=== PATIENT | female | born 1990 | race American Indian/Alaskan Native ===

== ENCOUNTER 2016-06-14 08:46 | Emergency (ER) | payer BC ==
[2016-06-14] MEDS ORDERED: MAGNESIUM SULFATE 2GM/50ML 2 GM/50 ML BAG IV ONE (08:53)
[2016-06-14] MEDS ORDERED: XOPENEX IH ONE ×3 (08:56→09:52)
[2016-06-14] MEDS ORDERED: BRETHINE SUB-Q ONE (09:03)
--- NOTE | 2016-06-14 09:03 | Emergency Department Report ---
HPI - General Chief Complaint: Adult Asthma Time Seen by Provider: 06/14/16 08:52 - HPI HPI: Room 17 The patient is a 25-year-old female presenting with a chief complaint of shortness of breath. Patient states her symptoms began last night after moving furniture and cleaning her home. Patient states it feels like her asthma. Patient does admit to occasional cough that is productive of yellow sputum. Patient denies any history of fever. EMS was called secondary to the patient's shortness of breath but did not improve with home administered albuterol. Patient was administered Solu-Medrol 125 mg IV by EMS. Patient continues to complain of shortness of breath Location: Lungs Duration: [see above] Quality: Wheezing consistent with asthma Severity: Moderate Modifying factors: [see above] Context: [see above] Mode of transportation: EMS ED Past Medical Hx - Past Medical History Previous Medical History?: Yes Hx Asthma: Yes Additional medical history: Hypercholesterolemia - Surgical History Past Surgical History?: No - Family History Family history: no significant - Social History Smoking Status: Never Smoker Substance Use Type: Alcohol - Medications Home Medications: Home Medications Medication Instructions Recorded Confirmed Last Taken Type ALBUTEROL Inhaler [Proair] 2 puff IH QID PRN #1 inhalation 06/14/16 Unknown Rx Nebulizer [Compact Compressor 1 each MC QID PRN #1 each 06/14/16 Unknown Rx Nebulizer] Prednisone [predniSONE 10 mg 10 mg PO .TAPER #1 tab.ds.pk 06/14/16 Unknown Rx (6-Day Pack, 21 Tabs)] ED Review of Systems ROS: Stated complaint: LANA Other details as noted in HPI Comment: All other systems reviewed and negative Constitutional: denies: chills, fever Eyes: denies: eye pain, eye discharge, vision change ENT: denies: ear pain, throat pain Respiratory: cough, shortness of breath, wheezing Cardiovascular: denies: chest pain, palpitations Endocrine: no symptoms reported Gastrointestinal: denies: abdominal pain, nausea, diarrhea Genitourinary: denies: urgency, dysuria, discharge Musculoskeletal: denies: back pain, joint swelling, arthralgia Skin: denies: rash, lesions Neurological: denies: headache, weakness, paresthesias Psychiatric: denies: anxiety, depression Hematological/Lymphatic: denies: easy bleeding, easy bruising Physical Exam - Physical Exam Physical Exam: GENERAL: The patient is well-developed well-nourished female lying on stretcher with audible wheezing was still able to speak. [] HEENT: Normocephalic. Atraumatic. Extraocular motions are intact. Patient has moist mucous membranes. NECK: Supple. Trachea midline CHEST/LUNGS: Diffuse wheezing. There is moderate respiratory distress noted. HEART/CARDIOVASCULAR: Regular. There is tachycardia. There is no gallop rub or murmur. ABDOMEN: Abdomen is soft, nontender. Patient has normal bowel sounds. There is no abdominal distention. SKIN: There is no rash. There is no edema. There is no diaphoresis. NEURO: The patient is awake, alert, and oriented. The patient is cooperative. The patient has normal speech MUSCULOSKELETAL: There is no evidence of acute injury. ED Course - Reevaluation(s) Reevaluation #1: 06/14/16 09:52 Patient appears more relaxed. Patient still has mild wheezing present throughout but is not in respiratory distress. Will continue Xopenex and reassess Reevaluation #2: 06/14/16 11:50 Patient states she feels much improved. No wheezing auscultated ED Medical Decision Making - Radiology Data Radiology results: image reviewed (chest x-ray) interpreted by me: Chest x-ray-no focal infiltrates, no pneumothorax - Differential Diagnosis acute asthma exacerbation, pneumonia, bronchitis Critical care attestation.: If time is entered above; I have spent that time in minutes in the direct care of this critically ill patient, excluding procedure time. ED Disposition Clinical Impression: Acute asthma exacerbation, Shortness of breath Disposition: DISCHARGED TO HOME OR SELFCARE Is pt being admited?: No Does the pt Need Aspirin: No Condition: Stable Instructions: Asthma (ED) Additional Instructions: Return to the emergency department immediately should you develop worsening symptoms, fever, inability to tolerate food or liquid or any other concerns. Prescriptions: ALBUTEROL Inhaler [Proair] 2 puff IH QID PRN #1 inhalation PRN Reason: Shortness Of Breath Nebulizer [Compact Compressor Nebulizer] 1 each MC QID PRN #1 each PRN Reason: Wheezing Prednisone [predniSONE 10 mg (6-Day Pack, 21 Tabs)] 10 mg PO .TAPER #1 tab.ds.pk Referrals: RICHIE HUGHES MD [Staff Physician] - 3-5 Days (Dr. Hughes is a primary physician. Please follow up with him to be established as a patient) STACIE LYN MD [Staff Physician] - 3-5 Days (Dr. Lyn is a electrical cad designer. Please follow up with him for further evaluation) Time of Disposition: 11:53
--- NOTE | 2016-06-14 09:40 | XRay Report ---
Single view chest: History: Shortness of breath. Findings: Normal cardiomediastinal silhouette. Trachea is midline. No consolidation, pneumothorax or pleural effusion. Impression: No acute cardiopulmonary findings.
[2016-06-14 11:41] VITALS: BP 124/73
== END 2016-06-14 12:12 | disposition home or self-care (01) ==
LOC: ED 08:46
DX: J45.901 Unspecified asthma with (acute) exacerbation (principal); E78.00 Pure hypercholesterolemia, unspecified
CPT/HCPCS: 71010; 94640; 96365; 96372; 99284; J3105; J3475